=== PATIENT | female | born 1950 | race Caucasian/White ===

== ENCOUNTER 2025-04-04 08:43 | Day surgery (SDC) | payer MEDICARE, SELFPAY ==
[2025-03-28 07:59] VITALS: BMI 27.5
[2025-04-04] MEDS: Tetracaine HCl/PF 0.5% Oph Sol 4 ML DROPS 1 DROP EYE-RIGHT (10:18)
[2025-04-04 10:19] VITALS: BP 150/79; PULSE 70; RESP 16; TEMP 36.4; O2SAT 98; BMI 28.0
[2025-04-04] MEDS: Cyclopentolate 1 % Ophth Sol 2 ML DRPBTL 1 DROP EYE-RIGHT ×3 (10:21→10:34)
[2025-04-04] MEDS: Tropicamide 1 % Ophth Sol 3 ML BTL 1 DROP EYE-RIGHT ×3 (10:22→10:35)
[2025-04-04] MEDS: Ketorolac Tromethamine 0.5% Op 5 ML DROPS 1 DROP EYE-RIGHT ×3 (10:24→10:37)
[2025-04-04] MEDS: Phenylephrine HCL 2.5% Oph SoL 2 ML BOTTLE 1 DROP EYE-RIGHT ×3 (10:25→10:40)
--- NOTE | 2025-04-04 10:25 | P.CONAN_ITS ---
[facility] Past Medical History Medical History Pre-diabetes Vitamin D deficiency Diverticulitis Stage 3 chronic kidney disease Atherosclerosis of [place] coronary artery of [place] heart without angina pectoris Calculus of gallbladder and bile duct w/o cholecystitis or obstruction COVID-19 Scoliosis Lichen sclerosus Low vitamin D level Mixed hyperlipidemia Osteoporosis Thyroid nodule Basal cell carcinoma Functional capacity: independent ambulation Patient : No Family History Family history of problems with anesthesia: No Surgical History History of Problems with Anesthesia: No Social History Social History Are you DNR?: No Advance Directives: No Advance Directives Information Provided: Yes Advance Directives on File: No Patient : No : No Meds Allergies Allergy/AdvReac Type Severity Reaction Status Date / Time environmental allergies Allergy Unknown Verified 04/04/25 10:14 Active Medications: Current Medications Cyclopentolate HCl (Cyclopentolate 1 % Ophth Darline 2 Ml Drpbtl) 1 drop EYE-RIGHT Q5M IVY Stop: 04/04/25 10:26 Ketorolac Tromethamine (Ketorolac Tromethamine 0.5% Op 5 Ml Drops) 1 drop EYE- RIGHT Q5M IVY Stop: 04/04/25 10:26 Phenylephrine HCl (Phenylephrine Hcl 2.5% Oph Darline 2 Ml Bottle) 1 drop EYE-RIGHT Q5M IVY Stop: 04/04/25 10:26 Povidone Iodine (Povidone Iodine 5 % Ophth Soln 30 Ml Bottle) 1 appl EYE-RIGHT PREOP PRN PRN Reason: Pre-Op Surgical Implant Prophy Tropicamide (Tropicamide 1 % Ophth Darline 3 Ml Btl) 1 drop EYE-RIGHT Q5M IVY Stop: 04/04/25 10:26 Home Medications ?Medication ?Instructions ?Recorded ?Confirmed ?Last Taken ?Type Bacillus coagulans-inulin 1 1 cap PO DAILY 03/28/25 04/04/25 Unknown History billion cell-250 mg capsule albuterol sulfate 90 mcg/actuation 2 puff inhalation Q6H PRN 03/28/25 04/04/25 Unknown History aerosol inhaler Shortness Of Breath Or Wheezing aspirin 81 mg tablet,delayed 81 mg PO DAILY 03/28/25 04/04/25 03/07/25 History release azelastine 137 mcg (0.1 %) nasal 1 spray intranasal BID PRN Allergy 03/28/25 04/04/25 Unknown History spray Symptoms cholecalciferol (vitamin D3) 25 100 mcg PO DAILY 03/28/25 04/04/25 Unknown History mcg (1,000 unit) tablet clobetasol 0.05 % topical ointment 1 appl topical 2XW 03/28/25 04/04/25 Unknown History fexofenadine 180 mg tablet 180 mg PO DAILY PRN Allergy 03/28/25 04/04/25 Unknown History Symptoms fluticasone propionate 50 1 spray intranasal BID PRN Allergy 03/28/25 04/04/25 Unknown History mcg/actuation nasal Symptoms spray,suspension omega 5-bwb-mta-fish oil 1,200 mg 1 cap PO DAILY 03/28/25 04/04/25 Unknown History (144 mg-216 mg) capsule (Fish Oil) triamcinolone acetonide 0.1 % 1 appl topical BID 03/28/25 04/04/25 Unknown History topical ointment Exam Height,Weight and Vital Signs: Height 5 ft 2.99 in Weight 71.668 kg Last Vital Signs Temp 97.5 F 04/04/25 10:19 Pulse 70 04/04/25 10:19 Resp 16 04/04/25 10:19 BP 150/79 H 04/04/25 10:19 Pulse Ox 98 04/04/25 10:19 O2 Del Method Room Air 04/04/25 10:19 Airway Mallampati Class: III TM Dist: >3cm Neck ROM: Full Heart: RRR Lungs: CTA Assessment and Plan Assessment Anesthesia Assessment: Anesthesia Plan Discussed Final Anesthetic Review Family History of Problems with Anesthesia: No History of Problems with Anesthesia: No NPO: Yes ASA Class: III Final Preanesthetic Review: Meds/Allgs Chart Reviewed, Consent Obtained/Reviewed and Anes Risks/Benef Reviewed Patient Risk: Low Procedure Risk: Low Anesthetic Plan Anesthetic Plan: MAC: Disposition: Standard PACU
--- NOTE | 2025-04-04 10:44 | P.CONAN_ITS ---
[facility] Past Medical History Medical History Pre-diabetes Vitamin D deficiency Diverticulitis Stage 3 chronic kidney disease Atherosclerosis of [place] coronary artery of [place] heart without angina pectoris Calculus of gallbladder and bile duct w/o cholecystitis or obstruction COVID-19 Scoliosis Lichen sclerosus Low vitamin D level Mixed hyperlipidemia Osteoporosis Thyroid nodule Basal cell carcinoma Functional capacity: independent ambulation Patient : No Family History Family history of problems with anesthesia: No Surgical History History of Problems with Anesthesia: No Social History Social History Are you DNR?: No Advance Directives: No Advance Directives Information Provided: Yes Advance Directives on File: No Patient : No : No Meds Allergies Allergy/AdvReac Type Severity Reaction Status Date / Time environmental allergies Allergy Unknown Verified 04/04/25 10:14 Active Medications: Current Medications Naloxone HCl (Naloxone Hcl 0.4 Mg/Ml Vial) 0.04 mg IVPUSH Q5M PRN PRN Reason: Excessive sedation or RR < 8 Povidone Iodine (Povidone Iodine 5 % Ophth Soln 30 Ml Bottle) 1 appl EYE-RIGHT PREOP PRN PRN Reason: Pre-Op Surgical Implant Prophy Home Medications ?Medication ?Instructions ?Recorded ?Confirmed ?Last Taken ?Type Bacillus coagulans-inulin 1 1 cap PO DAILY 03/28/25 04/04/25 Unknown History billion cell-250 mg capsule albuterol sulfate 90 mcg/actuation 2 puff inhalation Q6H PRN 03/28/25 04/04/25 Unknown History aerosol inhaler Shortness Of Breath Or Wheezing aspirin 81 mg tablet,delayed 81 mg PO DAILY 03/28/25 04/04/25 03/07/25 History release azelastine 137 mcg (0.1 %) nasal 1 spray intranasal BID PRN Allergy 03/28/25 04/04/25 Unknown History spray Symptoms cholecalciferol (vitamin D3) 25 100 mcg PO DAILY 03/28/25 04/04/25 Unknown History mcg (1,000 unit) tablet clobetasol 0.05 % topical ointment 1 appl topical 2XW 03/28/25 04/04/25 Unknown History fexofenadine 180 mg tablet 180 mg PO DAILY PRN Allergy 03/28/25 04/04/25 Unknown History Symptoms fluticasone propionate 50 1 spray intranasal BID PRN Allergy 03/28/25 04/04/25 Unknown History mcg/actuation nasal Symptoms spray,suspension omega 4-lof-vyp-fish oil 1,200 mg 1 cap PO DAILY 03/28/25 04/04/25 Unknown History (144 mg-216 mg) capsule (Fish Oil) triamcinolone acetonide 0.1 % 1 appl topical BID 03/28/25 04/04/25 Unknown History topical ointment Exam Height,Weight and Vital Signs: Height 5 ft 2.99 in Weight 71.668 kg Last Vital Signs Temp 97.5 F 04/04/25 10:19 Pulse 70 04/04/25 10:19 Resp 16 04/04/25 10:19 BP 150/79 H 04/04/25 10:19 Pulse Ox 98 04/04/25 10:19 O2 Del Method Room Air 04/04/25 10:19 Airway Mallampati Class: III TM Dist: >3cm Neck ROM: Full Heart: RRR Lungs: CTA Assessment and Plan Assessment Anesthesia Assessment: Anesthesia Plan Discussed and Chart Reviewed Final Anesthetic Review Family History of Problems with Anesthesia: No History of Problems with Anesthesia: No NPO: Yes ASA Class: III Final Preanesthetic Review: Meds/Allgs Chart Reviewed, Consent Obtained/Reviewed and Anes Risks/Benef Reviewed Anesthetic Plan Anesthetic Plan: MAC: Disposition: Standard PACU
--- NOTE | 2025-04-04 10:56 | P.PCNO_ITS ---
Ophthalmology Procedure Procedure Date of Service: 04/04/25 Ophthalmology Viscoelastic: Healon Duet Dual Pack Pro Ophthalmology Lenses: IOL Acrysof MP - [id number] (16) Procedure Notes: PREOPERATIVE DIAGNOSIS: Decreased visual acuity right eye secondary to cataract POSTOPERATIVE DIAGNOSIS: Same PROCEDURE: Right cataract extraction with intraocular lens insertion SURGEON: Alden Mosqueda M.D. ANESTHESIA: Topical/MAC ESTIMATED BLOOD LOSS: None COMPLICATIONS: None After obtaining informed consent, the patient was brought to the operating room suite and placed in the supine position. After adequate sedation per anesthesia, topical drops of Tetracaine were given to the right eye. The eye was then prepped and draped in the usual sterile fashion. The operating room microscope was then positioned over the operative eye and a lid speculum placed. A paracentesis was created. Viscoelastic was then instilled into the anterior chamber. A three plane incision was then created temporally, utilizing a 2.85 mm keratome. Capsulotomy forceps were then utilized to create a circular tear capsulotomy. Hydrodissection and hydrodelineation were carried out until adequate mobilization of the nucleus occurred. Phacoemulsification was then utilized to remove the dense central nucl eus followed by removal of the cortical material utilizing the automated aspiration irrigation unit. Viscoelastic was instilled into the posterior capsular bag followed by placement of a posterior chamber intraocular lens without difficulty. The residual Viscoelastic was then removed utilizing the automated IA machine. The wound was checked and found to be watertight. The patient tolerated the procedure well and the lid speculum was removed. Intracameral injection of Vigamox 0.1 mL followed by a subtenon injection of Kenalog-40 0.2 mL were administered. The patient will be seen in the a.m.
--- NOTE | 2025-04-04 10:56 | MHC.SHP ---
Pre-Procedural Eval Section A - 24 Hr Update-Section A only Date of Service: 04/04/25 The patient is an INPATIENT: No Changes since office visit: No Cold of Flu in the past 2 weeks, No New Medical Problems, No Changes in Medication and No Patient answered all questions The patient has been examined within 24 hours of the surgical procedure. The History & Physical has been completed within 30 days and I have reviewed it.: Yes Section B - Complete if H&P > 30 days Chief Complaint: Age-related nuclear cataract, right eye Allergies: Allergies Allergy/AdvReac Type Severity Reaction Status Date / Time environmental allergies Allergy Unknown Verified 04/04/25 10:14 Plan Diagnosis/Plan: Unchanged I have reviewed the history and physical and performed a pertinent physical examination on my patient. No changes have occurred unless specified. Time Spent With Patient Time: Total time managing care of this patient today ____ minutes.
[2025-04-04 11:24] VITALS: BP 159/78; PULSE 72; RESP 15; TEMP 36.3; O2SAT 98
--- NOTE | 2025-04-04 12:06 | HO.POSTANES ---
Post Anesthesia Evaluation Post Anesthesia Evaluation Date of Service: 04/04/25 Vital Signs: Vital Signs Temp Pulse Resp BP Pulse Ox O2 Del Method 04/04/25 11:24 97.3 F 72 15 159/78 H 98 Room Air 04/04/25 10:19 97.5 F 70 16 150/79 H 98 Room Air Anesthesia: Monitored Mental Status: Awake Pain Control: Satisfactory Nausea/Vomiting: None Hydration: Adequate Anesthesia-Related Issues: No Anes. Related Issues
== END 2025-04-04 11:28 | disposition home or self-care (01) ==
PROVIDERS: PCP Nurse Practitioner Adult Health; Visit Provider Ophthalmology
PROC: (CPT 66985; principal; 2025-04-04 11:30)
DX: H25.11 Age-related nuclear cataract, right eye (principal); H52.4 Presbyopia; H35.09 Other intraretinal microvascular abnormalities; H18.413 Arcus senilis, bilateral; H52.13 Myopia, bilateral; M81.0 Age-related osteoporosis without current pathological fracture; J30.2 Other seasonal allergic rhinitis; N18.31 Chronic kidney disease, stage 3a; R73.03 Prediabetes; E55.9 Vitamin D deficiency, unspecified; Z79.82 Long term (current) use of aspirin; Z79.899 Other long term (current) drug therapy
CPT/HCPCS: 66984; J2250; J3010; J3301; V2630